=== PATIENT | female | born 2000 | race American Indian/Alaskan Native ===

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

== ENCOUNTER 2019-09-02 19:27 | Emergency (ER) | payer SELFPAY ==
[2019-09-02 19:34] VITALS: BP 119/76
--- NOTE | 2019-09-02 20:09 | Emergency Department Report ---
Chief Complaint: Urogenital-Female Stated Complaint: VAGINA IRRITATION Time Seen by Provider: 09/02/19 20:05 - HPI History of Present Illness: pt denies any symptoms at all states that her partner informed her that he had an STD no vaginal discharge, no vaginal bleeding, no lesions or blisters on the vagina, no abd pain no PMHx no allergies to meds LNMP: August 15, 2019 Patient is asymptomatic but was concerned for STD due to her partner having an STD No abdominal pain no fever Vitals are normal Patient is presenting with a non-medical emergency at this time, medical screening exam performed Will refer patient to health department for full STD panel advised pt to please follow up with the health department for a full STD. have partner tested and treated. return to the emergency room for any new or worsening symptoms. - Exam Vital Signs: Vital Signs 09/02/19 19:32 Temperature 98.5 F Pulse Rate 85 Respiratory 16 Rate Blood Pressure 119/76 O2 Sat by Pulse 100 Oximetry MSE screening note: Focused history and physical exam performed. ED Disposition for MSE Clinical Impression: Concern about STD in female without diagnosis Disposition: Z-07 MED SCREENING EXAM-LEFT Is pt being admited?: No Does the pt Need Aspirin: No Condition: Stable Additional Instructions: follow up with the health department for a full STD. have partner tested and treated. return to the emergency room for any new or worsening symptoms. Referrals: [facility] [Outside] - 2-3 Days [facility] [Outside] - 2-3 Days Time of Disposition: 20:08 Print Language: SWEDISH
== END 2019-09-02 20:46 | disposition left against medical advice (07) ==
LOC: ED 19:27
DX: A64 Unspecified sexually transmitted disease (principal)

== ENCOUNTER 2020-05-07 05:30 | Outpatient (CLI) | payer MEDICAID ==
[2020-05-07 08:08] VITALS: BP 121/83
--- NOTE | 2020-05-07 10:12 | Ultrasound Report ---
Limited OB ultrasound INDICATION: Nonreassuring monitor strip, amniotic fluid index FINDINGS: There is a single intrauterine in cephalic presentation. Amniotic fluid index is 14.8 cm which is normal. heart rate is 131 bpm. IMPRESSION: Amniotic fluid index is normal. heart rate is 131 bpm. BIOPHYSICAL PROFILE INDICATION: Nonreassuring monitor strip COMPARISON: 04/22/2020 FINDINGS: breathing movement: 2/2 movement: 2/2 posture and tone: 2/2 Qualitative amniotic fluid volume: 2/2 IMPRESSION: Total score for biophysical profile is 8/8 heart rate is 106 bpm during the Biophysical Profile measurements. heart was 131 bpm duri ng the limited OB ultrasound. Signer Name: Kaleb Bland MD Signed: 05/07/2020 10:08 AM Workstation Name: [id number]
== END 2020-05-07 10:27 | disposition home or self-care (01) ==
LOC: TRG 05:30 → APU 05:59 → TRG 10:27
PROVIDERS: ATTEND Obstetrics & Gynecology
DX: O47.1 False labor at or after 37 completed weeks of gestation (principal); Z3A.38 38 weeks gestation of pregnancy
CPT/HCPCS: 59025; 76815; 76819; 96360

== ENCOUNTER 2020-05-10 22:27 | Outpatient (CLI) | payer MEDICAID ==
[2020-05-10 22:45] VITALS: BP 120/70
== END 2020-05-10 23:55 | disposition home or self-care (01) ==
LOC: TRG 22:27 → APU 22:34 → TRG 23:55
PROVIDERS: ATTEND Obstetrics & Gynecology
DX: O47.1 False labor at or after 37 completed weeks of gestation (principal); Z3A.38 38 weeks gestation of pregnancy
CPT/HCPCS: 59025